=== PATIENT | female | born 1955 | race Caucasian/White ===

== ENCOUNTER → 2022-11-19 08:37 | Outpatient (BNVA) | payer MEDICARE, SELFPAY | PROVIDERS: PCP Family Medicine; Visit Provider Family Medicine | DX: I10 Essential (primary) hypertension (principal) | CPT/HCPCS: 80053; 80061; 82043; 85025 ==

== ENCOUNTER 2022-11-28 12:45 | Oncology outpatient (recurring) (ONCR) | payer MEDICARE, SELFPAY | END 2022-12-27 23:59 | disposition home or self-care (01) | PROVIDERS: PCP Family Medicine; Visit Provider Internal Medicine Hematology & Oncology | DX: C50.811 Malignant neoplasm of overlapping sites of right female breast (principal); Z17.0 Estrogen receptor positive status [ER+]; C77.8 Secondary and unspecified malignant neoplasm of lymph nodes of multiple regions; Z79.811 Long term (current) use of aromatase inhibitors; Z79.899 Other long term (current) drug therapy | CPT/HCPCS: 99204 ==

== ENCOUNTER → 2022-12-11 09:57 | Outpatient (BNVA) | payer MEDICARE, SELFPAY | PROVIDERS: PCP Family Medicine; Referring Provider Family Medicine; Visit Provider Specialist | DX: G56.11 Other lesions of median nerve, right upper limb (principal) | CPT/HCPCS: 95908; 95909 ==

== ENCOUNTER → 2023-01-09 08:45 | Outpatient (BNVA) | payer MEDICARE, SELFPAY | PROVIDERS: PCP Family Medicine; Referring Provider Family Medicine; Visit Provider Student in an Organized Health Care Education/Training Program | DX: G56.01 Carpal tunnel syndrome, right upper limb (principal) | CPT/HCPCS: 73110; 99204 ==

== ENCOUNTER 2023-01-14 07:48 | Day surgery (SDC) | payer MEDICARE, SELFPAY ==
[2023-01-13 09:16] VITALS: BMI 31.3
--- NOTE | 2023-01-14 08:09 | W.PM.OPSUD ---
Surgery/Procedure H&P Update DATE OF PROCEDURE: January 14, 2023 DATE H&P PERFORMED: 01/09/23 CHANGES TO PREVIOUS DOCUMENTATION: None PREOP DIAGNOSIS: Right carpal tunnel syndrome PRIMARY INDICATION FOR PROCEDURE: Right carpal tunnel syndrome PLANNED PROCEDURE: Operation Date: 01/14/23 09:25 Proposed Procedures p carpal tunnel release of the right hand:64644,G56.01(Right) - Kirk Chaney DO
[2023-01-14] MEDS: acetaminophen 1,000 MG/100 ML PIGGYBACK 400 MG IV (09:02)
[2023-01-14] MEDS: ketorolac 30 mg/mL INJ IVP (09:04)
[2023-01-14] MEDS: sodium chloride 0.9% 1,000 ML 30 ML IV (09:04)
--- NOTE | 2023-01-14 09:35 | ANES.PREANE2 ---
Pre-Anesthetic Assessment Height/Weight: Height 1.5 m Weight 70.307 kg O2 Del Method Room Air 01/14/23 08:19 Preop Diagnosis: Right carpal tunnel syndrome Operation Date: 01/14/23 09:25 Proposed Procedures p carpal tunnel release of the right hand:89712,G56.01(Right) - Kirk Chaney DO Familial anesthetic complications: none Was Beta Danna taken within 24 hours: N/A Was Clonidine taken within 24 hours: N/A Last intake: Intake Last Liquid Date 01/15/23 Last Liquid Time 08:00 Last Solid Date 01/13/23 Last Solid Time 19:00 Social No alcohol and No tobacco Exam alert, oriented x 3, clear to auscultation bilaterally and regular rate & rhythm Airway Submandibular: within normal limits Cervical ROM: within normal limits Mallampati: Class II Dentition: full CV/HEM Hypertension Metabolic Hyperlipidemia and Morbid Obesity Neuropsych Neuropathy Anesthetic Plan ASA status: 2 Anesthesia: Choice Medications/Allergies Home Medications Medication Instructions Recorded Confirmed Last Taken Type acetaminophen 500 mg capsule 500 mg PO Q6H PRN tylenol 09/17/22 01/14/23 01/13/23 History ascorbic acid (vitamin C) 500 mg 500 mg PO DAILY 09/17/22 01/13/23 01/13/23 History capsule aspirin 81 mg tablet,delayed 81 mg PO DAILY 09/17/22 01/13/23 01/10/23 History release cholecalciferol (vitamin D3) 25 25 mcg PO DAILY 09/17/22 01/13/23 01/10/23 History mcg (1,000 unit) capsule omega-3 fatty acids-fish oil 360 1 cap PO DAILY 09/17/22 01/13/23 01/10/23 History mg-1,200 mg capsule (Fish Oil) amlodipine 5 mg tablet 5 mg PO DAILY #90 tabs 11/19/22 01/13/23 01/14/23 Rx anastrozole 1 mg tablet 1 mg PO DAILY #90 tabs 11/19/22 01/13/23 01/13/23 Rx lisinopril 40 mg tablet 40 mg PO ONCE #90 tabs 11/19/22 01/13/23 01/13/23 Rx rosuvastatin 5 mg tablet 5 mg PO DAILY #90 tabs 11/19/22 01/13/23 01/13/23 Rx Force Factor Total Beets See Rx Instructions .Route DAILY 11/28/22 01/13/23 01/13/23 History calcium carbonate 500 mg calcium 500 mg PO DAILY 01/09/23 01/13/23 01/13/23 History (1,250 mg) tablet Allergies Allergy/AdvReac Type Severity Reaction Status Date / Time Opioids - Morphine Analogues Allergy nausea Verified 01/13/23 09:11 Current Medications Generic Name Dose Route Start Last Admin Trade Name Freq PRN Reason Stop Dose Admin Sodium Chloride 1,000 mls @ 30 mls/hr 01/14/23 08:00 01/14/23 09:04 Sodium Chloride 0.9% IV 01/15/23 07:59 30 mls/hr .Q24H LOIS Administration PFSH Anesthesia Medical History Benign essential HTN Benign meningioma Breast cancer, right Carpal tunnel syndrome on both sides Surgical History History of exploratory laparotomy History of laparoscopic cholecystectomy History of lumpectomy of right breast Social History Smoking and tobacco status: never smoked Second hand smoke exposure: No Data Anesthesia Cardiac Studies: No Data to Display
[2023-01-14] MEDS: ceFAZolin 2,000 MG in sodium chloride 0.9% (plus) 50 ML 100 MG IV (09:42)
[2023-01-14] MEDS: lidocaine-epi 1% 20 mL INJ INJECTION (10:02)
[2023-01-14 10:17] VITALS: BP 122/64; PULSE 67; RESP 15; TEMP 36.1; O2SAT 92
--- NOTE | 2023-01-14 10:19 | PM.OP2 ---
Brief Operative Note Date of procedure: 01/14/23 Pre-op diagnosis: Right carpal tunnel syndrome Post-op diagnosis: same Procedure Done: Right carpal tunnel release Surgeon: Kirk Chaney Estimated blood loss (mL): 1 Complications: None Post-op Plan: Patient taken to PACU in stable condition recovering well. Patient dressing clean dry and intact. Patient will receive appropriate discharge instructions as well as pain medication postoperatively. We will follow-up with me in the office in 2 weeks. Patient understands and agrees with current plan. All questions answered. Condition: stable Disposition: same day Coding Level of Care Code Acute Code for Yasmeen Molina
[2023-01-14 10:20] VITALS: BP 129/69; PULSE 65; RESP 14; O2SAT 95
--- NOTE | 2023-01-14 10:20 | P.OP_ITS ---
Operative Report Date of procedure: January 14, 2023 Pre-op diagnosis: Preop Diagnosis Right carpal tunnel syndrome Procedure: Post-op diagnosis: Same Procedure done: Right carpal tunnel release Surgeon: Kirk Chaney DO Anesthesia: MAC (Local) Estimated blood loss: 1 mL Tourniquet time 7 minutes IV fluids: See anesthesia record Complications: None Findings: See operative report narrative Condition: stable Disposition: same day Brief History: Patient is a pleasant 67-year-old female with right carpal tunnel syndrome.? She has been worked up in the outpatient setting findings and physical examination consistent with this.? Patient states she has had EMG/NCS study in the past admitted consistent with severe right carpal tunnel syndrome.? On examination she does have weakness on thenar stress and mild atrophy at this time.? We talked about treatment options far as nonoperative and operative intervention.? Since she is already having weakness we talked about nonoperative and operative intervention ultimately given she is already having some signs of weakness would recommend surgical intervention of a right carpal tunnel release.? Through shared decision making in detail out of her risk benefits complication alternatives with surgical nonsurgical treatment options she agrees to proceed with surgical intervention of the right carpal tunnel release. Patient understands and agrees with current plan.? All questions answered.? Procedure: Patient seen and evaluated in the preoperative holding area.? Consent was reviewed and signed with patient.? Correct extremity was marked.? Patient was seen evaluated by the anesthesia department once cleared for surgery was brought back to the operative suite.? Placement was placed onto the OR table in supine position all bony prominences were well-padded patient properly secured to the bed.? Right upper extremity was then placed onto an armboard.? A nonsterile tourniquet was applied to the right upper arm.? Patient underwent anesthesia per the anesthesia department.? Patient's right upper extremity was then prepped and draped in standard orthopedic fashion.? Final timeout performed.? Patient received appropriate preoperative antibiotics. Under sterile aseptic technique patient received local anesthesia over the preplanned carpal tunnel incision site. Esmarch was used to exsanguinate the right upper extremity and tourniquet was insufflated to 250 mmHg. A standard mini open carpal tunnel incision was made.? Starting distally at Adkins's cardinal line in line with the fourth ray extending proximally distal to the wrist crease centered over the carpal tunnel.? Sharp scalpel incision was made through skin and subcutaneous tissue.? Self-retaining retractor was placed and the palmar fascia was identified.? This was then split longitudinally and direct visualization of the transverse carpal ligament was then made.? I then utilizing scalpel feathered through the transverse carpal ligament until I entered the floor of the transverse carpal tunnel ligament into the carpal tunnel.? Next I switched to dissection scissors and completed my release of the transverse carpal ligament distally with care to protect the recurrent motor branch.? I completely released into the palmar fat and until no entrapment was noted distally.? Care was made to protect the superficial palmar arch during my distal dissection.? Next I then placed a [place] underneath the transverse carpal tunnel ligament to protect the contents of the carpal tunnel and subsequently utilizing dissection scissors under loupe magnification completely released the transverse carpal ligament proximally into the median antebrachial fascia.? Care was made to protect the palmar cutaneous branch by keeping my scissors curved ulnarly.? Once completely released, I then placed my [place] and had appropriate decompression of the carpal tunnel proximally as well as distally.? I then inspected the contents of the carpal tunnel which showed an hourglass shape of the median nerve showing its compression.? No masses were noted.? Tendons appeared healthy.? Wound was then thoroughly irrigated.? Tourniquet deflated.? Hemostasis satisfactory with bipolar electrocautery.? I then closed the incision with interrupted nylon stitches.? Xeroform 4 x 4's and a bulky soft dressing was applied to the right upper extremity.? Patient was then awakened from anesthesia and taken to PACU in stable condition.? Patient tolerated procedure without complications. Disposition: Patient taken to PACU in stable condition recovering well.? Dressing clean dry and intact.? Patient will receive appropriate discharge instructions as well as pain medication postoperatively.? Patient to follow-up with me in the office in 2 weeks.? They understand they may be weightbearing as tolerated to the right hand.? Patient should keep incision clean dry and intact.? Patient understands if any questions or concerns may contact the office.
--- NOTE | 2023-01-14 10:20 | PM.PACU ---
PACU note Narrative: Patient taken to PACU in stable condition. Pain controlled. Local anesthesia still in effect with decreased sensation to right hand. Patient is able to wiggle fingers fingertips are warm well-perfused brisk capillary refill less than 2 seconds. Dressing on in place clean dry and intact Exam: awake Disposition: discharged
[2023-01-14 10:25] VITALS: BP 135/78; PULSE 62; RESP 16; O2SAT 95
[2023-01-14 10:35] VITALS: BP 142/77; PULSE 65; RESP 18; TEMP 36.1; O2SAT 96
--- NOTE | 2023-01-14 14:43 | ANE.PACU2 ---
Inpatient post-anesthesia follow up: Airway intact: Yes Vital signs: Temperature 97 F Pulse Rate 65 Respiratory Rate 18 Blood Pressure 142/77 Pulse Oximetry 96 Oxygen Delivery Me thod Room Air Oxygen Flow Rate Fraction of Inspir ed Oxygen Hydration adequate: Yes Nausea and vomiting: No Pain level: 2 Mental status: Baseline
== END 2023-01-14 11:07 | disposition home or self-care (01) ==
PROVIDERS: PCP Family Medicine; Visit Provider Student in an Organized Health Care Education/Training Program
PROC: (CPT 64721; principal; 2023-01-14 09:15)
DX: G56.01 Carpal tunnel syndrome, right upper limb (principal); I10 Essential (primary) hypertension; E78.5 Hyperlipidemia, unspecified; E66.01 Morbid (severe) obesity due to excess calories; Z68.31 Body mass index [BMI] 31.0-31.9, adult; G62.9 Polyneuropathy, unspecified; Z79.82 Long term (current) use of aspirin
CPT/HCPCS: 64721; J0131; J0690; J1885; J2704; J2795; J3010; J7030

== ENCOUNTER → 2023-01-30 08:14 | Outpatient (BNVA) | payer MEDICARE, SELFPAY | PROVIDERS: PCP Family Medicine; Visit Provider Student in an Organized Health Care Education/Training Program | DX: Z47.89 Encounter for other orthopedic aftercare (principal) | CPT/HCPCS: 99024 ==

== ENCOUNTER 2023-02-05 07:22 | Outpatient (CLI) | payer MEDICARE, SELFPAY ==
--- NOTE | 2023-02-05 | CT_ITS ---
WS: [id number] CT HEAD TECHNIQUE: Noncontrast CT of the head obtained from the skullbase to the vertex. CLINICAL INFORMATION: Benign neoplasm: Brain, supratentorial COMPARISON: Outside MRI 2020 DLP: 917.[address] scans at [facility] use at least one of these dose optimization techniques: automated e xposure control; mA and/or kV adjustment per patient size (includes targeted exams where dose is matc hed to clinical indication); or iterative reconstruction. FINDINGS: No evidence of intracranial hemorrhage or mass effect. Ventricular system and basal cisterns are duron nt. Moderate small vessel changes with mild parenchymal volume loss. Chronic lacunar infarct anterior limb LEFT internal capsule. No extra-axial fluid collections. No evidence of mass or mass effect. Va scular calcification. Meningioma overlying the RIGHT posterior temporal lobe. This measures approximately 1.7 x 1.3 cm. Thi s appears stable since MRI August 20, 2021 considering differences in modality and lack of contrast . This can be followed up with MRI without and with gadolinium enhancement for better anatomic detail Paranasal sinuses and mastoid air cells are well aerated. .Normal visualized soft tissues. CT/CT head wo con* [id number] IMPRESSION: 1. No evidence of intracranial hemorrhage or mass effect. 2. Moderate small vessel changes. Mild parenchymal volume loss. 3. Stable appearing meningioma overlying the RIGHT posterior temporal lobe. Th is appears stable since MRI August 20, 2021 considering differences in modali ty and lack of contrast. This can be followed up with MRI without and with gado linium enhancement for better anatomic detail. 4. No other suspicious findings
== END 2023-02-05 07:23 | disposition home or self-care (01) ==
PROVIDERS: PCP Family Medicine; Visit Provider Neurological Surgery
DX: D33.0 Benign neoplasm of brain, supratentorial (principal)
CPT/HCPCS: 70450

== ENCOUNTER 2023-05-22 07:32 | Outpatient (CLI) | payer MEDICARE, SELFPAY ==
--- NOTE | 2023-05-22 07:37 | MM_ITS ---
WS: [id number] BILATERAL 3D TOMOSYNTHESIS DIGITAL DIAGNOSTIC MAMMOGRAPHY WITH CAD CLINICAL INFORMATION: HX OF BREAST CANCER HISTORY: RIGHT breast lumpectomy COMPARISON: 05/20/2022 TECHNIQUE: Bilateral CC, MLO, and ML views. FINDINGS: Scattered fibroglandular densities bilaterally. Postoperative lumpectomy changes RIGHT breast with pa renchymal fibrosis and architectural distortion. Treatment related changes with associated skin thick ening. This is similar to previous. Vascular calcification. LEFT breast is unchanged and unremarkable. IMPRESSION: MM/[place] [id number] BI-RADS: 2-Benign FOLLOW UP: 1 Year Follow-up Recommend return to annual diagnostic mammography.
== END 2023-05-22 07:33 | disposition home or self-care (01) ==
PROVIDERS: PCP Family Medicine; Visit Provider Nurse Practitioner Family
DX: Z85.3 Personal history of malignant neoplasm of breast (principal)
CPT/HCPCS: 77062; G0279

== ENCOUNTER 2023-06-06 07:25 | Oncology outpatient (recurring) (ONCR) | payer MEDICARE, SELFPAY ==
[2023-06-06 08:15] LABS: Basophils % 0.9 %; Eosinophils # 0.3 10^3/uL (0.0-0.8); Eosinophils % 6.5 %; Hematocrit 40.2 % (36-47); Lymphocytes # 0.9 10^3/uL (0.8-4.8); Lymphocytes % 20.3 %; Mean Corpuscular HGB Conc 34.8 g/dL (30-55); Mean Corpuscular Hemoglobin 30.8 pg (27-33); Mean Corpuscular Volume 88.5 fl (85-98); Mean Platelet Volume 8.3 fL (7.4-10.4); Monocytes # 0.3 10^3/uL (0.2-0.9); Monocytes % 7.4 %; Neutrophils # 2.81 10^3/uL (1.8-7.7); Neutrophils % 64.7 %; Nucleated Red Blood Cells % 0 %; Platelet Count 231 10^3/cmm (157-399); Red Blood Count 4.54 10^6/uL (3.85-5.65); Red Cell Distribution Width 12.6 % (12.1-15.1); White Blood Count 4.34 10^3/uL (3.29-11.43)
[2023-06-06 08:38] LABS: Alanine Aminotransferase 26 U/L (0-33); Albumin Level 4.4 g/dL (3.5-5.2); Alkaline Phosphatase 87 U/L (35-105); Anion Gap 12.1 (5-19); Aspartate Amino Transferase 23 U/L (0-32); Blood Urea Nitrogen 19 mg/dL (8-23); Calcium 9.2 mg/dL (8.5-10.5); Carbon Dioxide 27 mmol/L (22-29); Chloride 107 mmol/L (98-107); Globulin 2.6 g/dL (1.3-4.6); Glomerular Filtration Rate 71.3 mL/min (90-130); Glucose 98 mg/dL (65-115); Osmolality Calculated 296 mOsm/kg (285-295); Potassium 4.1 mmol/L (3.5-5.1); Sodium 142 mmol/L (136-145); Total Bilirubin 1.6 mg/dL (0.15-1.2)
== END 2023-06-28 23:59 | disposition home or self-care (01) ==
PROVIDERS: PCP Family Medicine; Visit Provider Internal Medicine Hematology & Oncology
DX: C50.811 Malignant neoplasm of overlapping sites of right female breast (principal); Z17.0 Estrogen receptor positive status [ER+]; C77.8 Secondary and unspecified malignant neoplasm of lymph nodes of multiple regions; Z79.811 Long term (current) use of aromatase inhibitors; Z79.899 Other long term (current) drug therapy
CPT/HCPCS: 80053; 85025; 99213

== ENCOUNTER → 2023-07-15 08:08 | Outpatient (BNVA) | payer MEDICARE, SELFPAY | PROVIDERS: PCP Family Medicine; Visit Provider Student in an Organized Health Care Education/Training Program | DX: M79.642 Pain in left hand (principal); M65.4 Radial styloid tenosynovitis [de Quervain] | CPT/HCPCS: 73130; 99213 ==

== ENCOUNTER → 2023-11-03 09:51 | Outpatient (BNVA) | payer OTHER, SELFPAY | PROVIDERS: PCP Family Medicine; Visit Provider Family Medicine | DX: E78.5 Hyperlipidemia, unspecified (principal); E11.9 Type 2 diabetes mellitus without complications; I10 Essential (primary) hypertension | CPT/HCPCS: 80061; 82043 ==

== ENCOUNTER 2023-12-11 11:52 | Oncology outpatient (recurring) (ONCR) | payer MEDICARE, SELFPAY ==
[2023-12-08 09:32] LABS: Basophils # 0.1 10^3/uL (0.0-0.1); Eosinophils # 0.3 10^3/uL (0.0-0.8); Eosinophils % 5.6 %; Hematocrit 41.1 % (36-47); Lymphocytes % 20.4 %; Mean Corpuscular HGB Conc 34.8 g/dL (30-55); Mean Corpuscular Hemoglobin 31.2 pg (27-33); Mean Corpuscular Volume 89.5 fl (85-98); Mean Platelet Volume 8.3 fL (7.4-10.4); Monocytes # 0.4 10^3/uL (0.2-0.9); Monocytes % 7.5 %; Neutrophils # 3.12 10^3/uL (1.8-7.7); Neutrophils % 65.1 %; Nucleated Red Blood Cells % 0 %; Platelet Count 273 10^3/cmm (157-399); Red Blood Count 4.59 10^6/uL (3.85-5.65); Red Cell Distribution Width 12.7 % (12.1-15.1)
[2023-12-08 10:03] LABS: Alanine Aminotransferase 20 U/L (0-33); Albumin Level 4.1 g/dL (3.5-5.2); Alkaline Phosphatase 88 U/L (35-105); Anion Gap 15.1 (5-19); Aspartate Amino Transferase 24 U/L (0-32); Blood Urea Nitrogen 14 mg/dL (8-23); Calcium 8.9 mg/dL (8.5-10.5); Carbon Dioxide 25 mmol/L (22-29); Chloride 106 mmol/L (98-107); Globulin 2.9 g/dL (1.3-4.6); Glucose 103 mg/dL (65-115); Osmolality Calculated 295 mOsm/kg (285-295); Potassium 4.1 mmol/L (3.5-5.1); Sodium 142 mmol/L (136-145); Total Bilirubin 1.3 mg/dL (0.15-1.2)
== END 2023-12-28 23:59 | disposition home or self-care (01) ==
PROVIDERS: PCP Family Medicine; Visit Provider Nurse Practitioner Family
DX: C50.811 Malignant neoplasm of overlapping sites of right female breast (principal); Z17.0 Estrogen receptor positive status [ER+]; C77.8 Secondary and unspecified malignant neoplasm of lymph nodes of multiple regions; Z79.811 Long term (current) use of aromatase inhibitors; Z79.899 Other long term (current) drug therapy
CPT/HCPCS: 36415; 80053; 85025; 99214

== ENCOUNTER 2024-05-26 07:57 | Outpatient (CLI) | payer MEDICARE, SELFPAY ==
--- NOTE | 2024-05-26 08:00 | MM_ITS ---
WS: [id number] VIEWS: MLO, CC, and ML views both breasts. 3D digital tomosynthesis is also included in this exam. Comparison made with prior exam of 05/20/2022 and 05/22/2023.. Findings: There was no sign of mass, architectural distortion or suspicious calcification in either breast. Pos tsurgical changes noted in the upper outer quadrant of the RIGHT breast. The breasts are heterogeneou sly dense which may obscure small masses MM/[place] [id number] Impression: BI-RADS: 2-Benign finding. FOLLOW-UP: 1 Year Follow-up This mammogram was also analyzed by the Computer Aided Detection System R2 Imag e Replenisher.
== END 2024-05-26 07:58 | disposition home or self-care (01) ==
LOC: RAD 07:57
PROVIDERS: PCP Family Medicine Adult Medicine; Visit Provider Nurse Practitioner Family
DX: C50.911 Malignant neoplasm of unspecified site of right female breast (principal); Z98.890 Other specified postprocedural states; R92.333 Mammographic heterogeneous density, bilateral breasts
CPT/HCPCS: 77062; G0279

== ENCOUNTER 2024-06-15 12:37 | Oncology outpatient (recurring) (ONCR) | payer MEDICARE, SELFPAY ==
[2024-06-14 13:31] LABS: Basophils # 0.1 10^3/uL (0.0-0.1); Basophils % 0.8 %; Eosinophils # 0.3 10^3/uL (0.0-0.8); Eosinophils % 5.2 %; Hematocrit 39.2 % (36-47); Lymphocytes # 1.4 10^3/uL (0.8-4.8); Mean Corpuscular HGB Conc 35.5 g/dL (30-55); Mean Corpuscular Volume 87.5 fl (85-98); Mean Platelet Volume 8.2 fL (7.4-10.4); Monocytes # 0.4 10^3/uL (0.2-0.9); Monocytes % 6.1 %; Neutrophils # 3.81 10^3/uL (1.8-7.7); Neutrophils % 64.4 %; Nucleated Red Blood Cells % 0 %; Platelet Count 281 10^3/cmm (157-399); Red Blood Count 4.48 10^6/uL (3.85-5.65); Red Cell Distribution Width 12.7 % (12.1-15.1); White Blood Count 5.92 10^3/uL (3.29-11.43)
[2024-06-14 13:46] LABS: Alanine Aminotransferase 17 U/L (0-33); Albumin Level 4.2 g/dL (3.5-5.2); Alkaline Phosphatase 93 U/L (35-105); Anion Gap 12.7 (5-19); Aspartate Amino Transferase 21 U/L (0-32); Blood Urea Nitrogen 10 mg/dL (8-23); Calcium 8.7 mg/dL (8.5-10.5); Carbon Dioxide 27 mmol/L (22-29); Chloride 105 mmol/L (98-107); Globulin 2.8 g/dL (1.3-4.6); Glucose 155 mg/dL (65-115); Osmolality Calculated 294 mOsm/kg (285-295); Potassium 3.7 mmol/L (3.5-5.1); Sodium 141 mmol/L (136-145)
== END 2024-06-28 23:59 | disposition home or self-care (01) ==
PROVIDERS: PCP Family Medicine Adult Medicine; Visit Provider Nurse Practitioner Family
DX: C50.911 Malignant neoplasm of unspecified site of right female breast (principal)
CPT/HCPCS: 36415; 80053; 85025; 99214

== ENCOUNTER → 2024-11-24 07:57 | Outpatient (BNVA) | payer MEDICARE, SELFPAY | PROVIDERS: PCP Family Medicine; Visit Provider Family Medicine | DX: I10 Essential (primary) hypertension (principal); E78.5 Hyperlipidemia, unspecified; Z79.899 Other long term (current) drug therapy | CPT/HCPCS: 80061; 84443 ==

== ENCOUNTER 2024-12-15 09:29 | Oncology outpatient (recurring) (ONCR) | payer MEDICARE, SELFPAY | END 2024-12-27 23:59 | disposition home or self-care (01) | PROVIDERS: PCP Family Medicine; Visit Provider Family Medicine | DX: C50.911 Malignant neoplasm of unspecified site of right female breast (principal); Z17.0 Estrogen receptor positive status [ER+]; Z92.3 Personal history of irradiation; Z79.811 Long term (current) use of aromatase inhibitors | CPT/HCPCS: 80053; 85025; 99213 ==

== ENCOUNTER 2024-12-28 07:38 | Outpatient (CLI) | payer MEDICARE, SELFPAY ==
--- NOTE | 2024-12-28 08:00 | MR_ITS ---
WS: [id number] MRI HEAD WITH CONTRAST TECHNIQUE: Sagittal T1, T2 axial, T2 axial FLAIR, axial susceptibility weighted imaging, axial diffusion weighted images, and coronal T2 images were obtained. Pre and post-T1 axial and post T1 coronal images. ADC and FSPGR images. CLINICAL INFORMATION: meningioma f/u--has just had CT COMPARISON: Outside MRI [address] 02/05/2023 FINDINGS: Again seen is the enhancing meningioma overlying the RIGHT posterior temporal lobe appears stable since 2020. This measures approximately 1.5 x 1.4 cm by my measurements today. Mild mass effect on the underlying temporal lobe. No significant surrounding edema. No evidence of progression. No evidence of restricted diffusion to suggest acute ischemia. Moderate small vessel changes. Mild parenchymal volume loss. Normal posterior fossa. Normal vascular flow voids at the skull base. No extra-axial fluid collections. Paranasal sinuses and mastoid air cells are well aerated. No hemosiderin on susceptibly weighted images. Normal optic chiasm and pituitary infundibulum. MR/MR head wo/w con [id number] IMPRESSION: 1. Stable RIGHT posterior temporal meningioma. This is unchanged since 2020. N o evidence of progression or underlying edema. 2. No other acute findings.
[2024-12-28] MEDS: gadobenate dimeglumine 20 mL vial 15 ML IV (08:40)
== END 2024-12-28 07:39 | disposition home or self-care (01) ==
PROVIDERS: PCP Family Medicine; Visit Provider Family Medicine
DX: D32.9 Benign neoplasm of meninges, unspecified (principal); R93.0 Abnormal findings on diagnostic imaging of skull and head, not elsewhere classified; G31.89 Other specified degenerative diseases of nervous system
CPT/HCPCS: 70553

== ENCOUNTER 2025-02-26 10:40 | Emergency (ER) | payer MEDICARE, SELFPAY ==
[2025-02-26 10:48] VITALS: BP 120/83; PULSE 88; RESP 20; TEMP 36.7; O2SAT 97
--- NOTE | 2025-02-26 11:01 | ECG_ITS ---
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 Measurements Intervals [place] Rate: 79 P: 8 NV: 152 QRS: -24 QRSD: 89 T: 20 QT: 362 QTc: 417 Interpretive Statements SINUS RHYTHM BORDERLINE LEFT AXIS DEVIATION [QRS AXIS < -20] VOLTAGE CRITERIA FOR LVH [MEETS CRITERIA IN ONE OF: R(aVL), S(V1), R(V5), R(V5/V6)+S(V1)] No previous ECG available for comparison Electronically Signed On 03-01-2025 11:43:21 CDT by Jam Jarrell M.D. [email or web address]
--- NOTE | 2025-02-26 11:01 | XRR_ITS ---
PROCEDURE INFORMATION: Exam: XR Chest Exam date and time: 02/26/2025 11:27 AM Age: 69 years old Clinical indication: Pain; Chest pressure; Additional info: Chest pain TECHNIQUE: Imaging protocol: Radiologic exam of the chest. Views: 1 view. COMPARISON: PT PET skull to thigh INIT [id number] 07/19/2021 9:19 AM FINDINGS: Tubes, catheters and devices: Surgical clips overlie the right abdomen. Lungs: Left-sided pulmonary linear interstitial opacities identified within lower lung. The lungs appear otherwise clear. Pleural spaces: No pleural effusion. No pneumothorax. Heart/Mediastinum: Cardiac silhouette appears mildly enlarged. Bones/joints: Diffusely decreased bone density. Moderate to severe generalized bony degenerative changes. Soft tissues: This study is limited by patient's body habitus. XR/XR chest 1V portable [id number] IMPRESSION: 1. Pulmonary atelectasis or acute infiltrates within left lower chest. 2. Mild enlarged cardiac silhouette.
[2025-02-26 11:17] LABS: Basophils % 0.2 %; Eosinophils % 0.3 %; Hematocrit 42.3 % (36-47); Lymphocytes # 0.6 10^3/uL (0.8-4.8); Lymphocytes % 4.5 %; Mean Corpuscular HGB Conc 33.8 g/dL (30-55); Mean Corpuscular Hemoglobin 30.2 pg (27-33); Mean Corpuscular Volume 89.4 fl (85-98); Mean Platelet Volume 8.4 fL (7.4-10.4); Monocytes # 0.6 10^3/uL (0.2-0.9); Neutrophils # 11.43 10^3/uL (1.8-7.7); Neutrophils % 89.7 %; Nucleated Red Blood Cells % 0 %; Platelet Count 269 10^3/cmm (157-399); Red Blood Count 4.73 10^6/uL (3.85-5.65); Red Cell Distribution Width 12.9 % (12.1-15.1); White Blood Count 12.75 10^3/uL (3.29-11.43)
[2025-02-26 11:34] LABS: D Dimer 0.62 ug/mLFEU (0-0.59)
[2025-02-26] MEDS: aspirin 81 mg Chew Tablet 324 MG PO (11:34)
[2025-02-26] MEDS: ondansetron 2 mg/ML SDV 2 mL 4 MG IVP (11:35)
[2025-02-26 11:37] VITALS: BP 110/71; PULSE 83; RESP 16; O2SAT 98
[2025-02-26 11:37] LABS: Troponin(5th) Baseline 7 ng/L (0-10)
--- NOTE | 2025-02-26 11:39 | PC.NURSE ---
pt states she is allergic to morphine, states she had it once and began violently vomiting Pt has ambulated w/o assistance to restroom and had a large BM, and voided. urine sample placed in lab.
[2025-02-26 11:46] LABS: Alanine Aminotransferase 20 U/L (0-33); Albumin Level 4.3 g/dL (3.5-5.2); Alkaline Phosphatase 96 U/L (35-105); Anion Gap 16.3 (5-19); Aspartate Amino Transferase 20 U/L (0-32); Blood Urea Nitrogen 19 mg/dL (8-23); Calcium 9.2 mg/dL (8.5-10.5); Carbon Dioxide 23 mmol/L (22-29); Chloride 106 mmol/L (98-107); Globulin 2.6 g/dL (1.3-4.6); Glomerular Filtration Rate 70.9 mL/min (90-130); Glucose 128 mg/dL (65-115); NT Pro B Type Natriuretic Pept < 36 pg/mL (0-125); Osmolality Calculated 296 mOsm/kg (285-295); Potassium 4.3 mmol/L (3.5-5.1); Sodium 141 mmol/L (136-145); Total Bilirubin 1.9 mg/dL (0.15-1.2); Total Protein 6.9 g/dL (6.6-8.7)
--- NOTE | 2025-02-26 12:13 | CTR_ITS ---
PROCEDURE INFORMATION: Exam: CTA Chest With Contrast Exam date and time: 02/26/2025 12:40 PM Age: 69 years old Clinical indication: Abnormal findings; Abnormal diagnostic tests; Elevated d-dimer; Shortness of breath; Additional info: Chest pain, SOB TECHNIQUE: Imaging protocol: Computed tomographic angiography of the chest with contrast. Exam focused on the arteries. 3D rendering (Not supervised by radiologist): MIP and/or 3D reconstructed images were created by the technologist. Radiation optimization: All CT scans at this facility use at least one of these dose optimization techniques: automated exposure control; mA and/or kV adjustment per patient size (includes targeted exams where dose is matched to clinical indication); or iterative reconstruction. Contrast material: OMNI 350; Contrast volume: 58 ml; Contrast route: INTRAVENOUS (IV); COMPARISON: PT PET skull to thigh INIT [id number] 07/19/2021 9:19 AM RADIATION DOSE METRICS: Total DLP (mGy-cm): 332.76 FINDINGS: Pulmonary arteries: No visualized pulmonary emboli. Great vessels off aortic arch: Unremarkable. Aorta: Mild atherosclerotic calcification demonstrated within the aorta. The ascending thoracic aorta is aneurysmal. Ascending thoracic aorta measurement: 4 cm on axial image 188 of series 7. Normal tapering of the aortic arch and descending thoracic aorta. Lungs: Lung volumes are decreased. Bilateral pulmonary linear and interstitial opacities are demonstrated within the lungs. The pulmonary opacities are demonstrated within bilateral upper and lower lungs. Mild alveolar density in the left lower chest, lingula and left lower lobe. Bronchial wall thickening within the lungs bilaterally. Pleural spaces: Unremarkable. No pneumothorax. No pleural effusion. Heart: Aortic valve calcification is demonstrated. Lymph nodes: No evidence for enlarged lymphadenopathy. Gallbladder and biliary ducts: The gallbladder has been surgically removed. Surgical clips identified in the gallbladder fossa. Intestine: Colonic diverticulosis identified within the visualized left abdomen. Bones/joints: Mild generalized bony degenerative changes. Bony structures appear otherwise unremarkable. Soft tissues: Unremarkable. CT/CT angio chest PE protcl [id number] IMPRESSION: 1. No visualized pulmonary embolus. 2. Diffuse bilateral pulmonary opacities which appear most prominent in the left lower lung. Findings concerning for acute infiltrates, pneumonia or pneumonitis. 3. Ascending thoracic aortic aneurysm, as described above. 4. Colonic diverticulosis.
[2025-02-26 12:30] VITALS: BP 97/70; PULSE 78; O2SAT 97
[2025-02-26] MEDS: iohexol 350 mg/mL 500 mL Btl (per mL) IV (12:54)
[2025-02-26 13:00] VITALS: BP 141/93; PULSE 94; O2SAT 98
--- NOTE | 2025-02-26 13:13 | ECG_ITS ---
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1955 Requested By: Dwight Luna Order Number: [id number] Reading MD: MICHELINE GONZALEZ Measurements Intervals [place] Rate: 82 P: -3 SD: 146 QRS: -23 QRSD: 84 T: 23 QT: 354 QTc: 415 Interpretive Statements SINUS RHYTHM BORDERLINE LEFT AXIS DEVIATION [QRS AXIS < -20] LOW QRS VOLTAGE IN PRECORDIAL LEADS [QRS DEFLECTION < 1.0 mV IN CHEST LEADS] MODERATE VOLTAGE CRITERIA FOR LVH, CONSIDER NORMAL VARIANT [MEETS CRITERIA IN ONE OF: R(aVL), S(V1), R(V5), R(V5/V6)+S(V1)] Compared to ECG 02/26/2025 10:52:28 Low QRS voltage now present Electronically Signed On 03-02-2025 23:01:17 CDT by MICHELINE GONZALEZ [id number]
[2025-02-26 13:25] LABS: Troponin 5 2HR 7.03 ng/L (0-10); Troponin 5 2HR Delta 0.03 ABS# (0-10)
[2025-02-26 13:30] VITALS: PULSE 79; O2SAT 94
--- NOTE | 2025-02-26 13:38 | W.ED.CHESTPA ---
HPI - Chest Pain General: Chief Complaint: Chest Pain Stated Complaint: cp sob Time Seen by Provider: 02/26/25 10:43 History of Present Illness: This patient is a 69-year-old white female who presents to the emergency department complaining of headache, neck pain, back pain, shoulder pains and chest pain. She has also had some shortness of breath and nausea. Mild cough. Started at 8:00 this morning. Associated symptoms: Reports dyspnea Related Data Home Medications ?Medication ?Instructions ?Recorded ?Confirmed acetaminophen 500 mg capsule 500 mg PO Q6H PRN tylenol 09/17/22 12/15/24 ascorbic acid (vitamin C) 500 mg 500 mg PO DAILY 09/17/22 12/15/24 capsule aspirin 81 mg tablet,delayed 81 mg PO DAILY 09/17/22 12/15/24 release cholecalciferol (vitamin D3) 25 25 mcg PO DAILY 09/17/22 12/15/24 mcg (1,000 unit) capsule omega-3 fatty acids-fish oil 360 1 cap PO DAILY 09/17/22 12/15/24 mg-1,200 mg capsule (Fish Oil) Force Factor Total Beets See Rx Instructions .Route DAILY 11/28/22 12/15/24 calcium carbonate 500 mg PO DAILY 01/09/23 12/15/24 Previous Rx's ?Medication ?Instructions ?Recorded anastrozole 1 mg tablet 1 mg PO DAILY #90 tabs 06/15/24 rosuvastatin 5 mg tablet 5 mg PO DAILY #90 tabs 06/23/24 lisinopril 40 mg tablet See Rx Instructions .Route 01/20/25 .COMPLEX #90 tabs amlodipine 5 mg tablet See Rx Instructions .Route 01/27/25 .COMPLEX #90 tabs doxycycline hyclate 100 mg capsule 100 mg PO BID 10 days #20 caps 02/26/25 Allergies Allergy/AdvReac Type Severity Reaction Status Date / Time Opioids - Morphine Analogues Allergy nausea Verified 12/15/24 09:41 Review of Systems General: Reports: 10 or more systems reviewed and unremarkable except in HPI and below Card: Reports: chest pain Resp: Reports: dyspnea Musc: Reports: neck pain and back pain Neuro: Reports: headache(s) PFSH ED PFSH: Medical History Dyslipidemia Benign meningioma R temporal Carpal tunnel syndrome on both sides Breast cancer, right sees oncologist; had lumpectomy, radiation, no chemo Benign essential HTN Surgical History History of exploratory laparotomy nothing removed; done for R sided pain History of laparoscopic cholecystectomy History of lumpectomy of right breast for breast cancer Family History Father No problems noted. Mother Advanced cirrhosis of liver Social History Smoking and tobacco/nicotine status: former use of tobacco/nicotine Quit status (tobacco/nicotine): has quit using Year quit tobacco: 1969 Former quit date comment: only tried it Second hand smoke exposure: No Alcohol intake: never Substance/Drug Use: never Household members: spouse Marital status: Number of children: 3 Highest education level completed: High School Graduate Current occupational status: retired Previous occupational history: secretarial Physical Exam Const: COMMON NORMALS: no acute distress, patient oriented x3 and no limitations GENERAL APPEARANCE: cooperative and comfortable HENMT: COMMON NORMALS: normocephalic, atraumatic, Normal nasal mucous membranes and turbinates present, moist oral mucous membranes and oropharynx normal HEAD & SCALP: normal to inspection, normocephalic and atraumatic FACE & SINUS: normal facial exam NOSE: Normal nasal mucous membranes and turbinates present Eye: COMMON NORMALS: Equal, round and reactive pupils present, EOMs intact bilaterally and conjunctivae normal GENERAL EYE: appearance normal, both eyes and all related structures CONJUNCTIVA: Yes conjunctivae normal PUPIL: Yes Equal, round and reactive pupils present Neck/C-Spine: COMMON NORMALS: supple and no JVD Chest: COMMONS NORMALS: normal inspection of the chest Resp: COMMON NORMALS: normal respiratory effort and clear to auscultation bilaterally AUSCULTATION: clear to auscultation bilaterally Cardio: COMMON NORMALS: no JVD, regular rate, regular rhythm, No gallops present (Cardio), No murmurs present (Cardio) and No rub (Cardio) RATE: regular rate RHYTHM: regular rhythm GI: COMMON NORMALS: Normal to inspection, nondistended, normoactive bowel sounds present, Soft to palpation and non-tender AUSCULTATION: Yes normoactive bowel sounds PALPATION: Yes Soft to palpation : COMMON NORMALS: Yes no CVA tenderness BLADDER/KIDNEY EXAM: Yes no CVA tenderness Back/Pelvis: COMMON NORMALS: no CVA tenderness and thoracic and lumbar spine normal to inspection Extremity: COMMON NORMALS: normal to inspection Neuro: COMMON NORMALS: patient oriented x3 and CN's II-XII intact bilaterally Psych: COMMON NORMALS: mental status grossly normal, Normal thought process present and cooperative THOUGHT PROCESS: Normal thought process present Skin: COMMON NORMALS: no rashes or lesions noted, turgor normal and no jaundice GENERAL SKIN EXAM: no rashes or lesions noted and turgor normal Course Vital Signs: Vital signs: Vital Signs Temperature 98.1 F 02/26/25 10:48 Pulse Rate 78 02/26/25 12:30 Respiratory Rate 16 02/26/25 11:37 Blood Pressure 97/70 02/26/25 12:30 Pulse Oximetry 97 02/26/25 12:30 Oxygen Delivery Me thod Room Air 02/26/25 12:30 MDM - Chest Pain Medical Decision Making EKG revealed sinus rhythm with no ST segment abnormalities. Chest x-ray was read by the radiologist. They do note some atelectasis versus infiltrates in the lower lobes. CBC revealed a white blood cell count of 12.8. CMP revealed a total bili of 1.9. This is chronic. D-dimer was slightly elevated at 0.62. BNP was less than 36. Troponin 7 with a 2-hour level of 7. CT angiogram of the chest was read by the radiologist. No PE. There are some small bilateral lower lobe infiltrates. All results were discussed with the patient. I did place her on doxycycline for pneumonia and her first dose was given in the emergency department. Recommended she push fluids and get some rest. Take Tylenol for aches and pains. Follow-up with primary care physician next week for recheck. She was discharged in stable condition. Lab Data 02/26/25 11:08 02/26/25 11:08 Radiology Impressions Chest X-Ray 02/26/25 11:01 IMPRESSION: 1. Pulmonary atelectasis or acute infiltrates within left lower chest. 2. Mild enlarged cardiac silhouette. Chest CTA 02/26/25 12:13 IMPRESSION: 1. No visualized pulmonary embolus. 2. Diffuse bilateral pulmonary opacities which appear most prominent in the left lower lung. Findings concerning for acute infiltrates, pneumonia or pneumonitis. 3. Ascending thoracic aortic aneurysm, as described above. 4. Colonic diverticulosis. Laboratory Results WBC 12.75 10^3/uL (3.29-11.43) H 02/26/25 11:08 RBC 4.73 10^6/uL (3.85-5.65) 02/26/25 11:08 Hgb 14.30 g/dL (11.27-16.99) 02/26/25 11:08 Hct 42.3 % (36-47) 02/26/25 11:08 MCV 89.4 fl (85-98) 02/26/25 11:08 MCH 30.2 pg (27-33) 02/26/25 11:08 MCHC 33.8 g/dL (30-55) 02/26/25 11:08 RDW 12.9 % (12.1-15.1) 02/26/25 11:08 Plt Count 269 10^3/cmm (157-399) 02/26/25 11:08 MPV 8.4 fL (7.4-10.4) 02/26/25 11:08 Neut % (Auto) 89.7 % 02/26/25 11:08 Lymph % (Auto) 4.5 % 02/26/25 11:08 [place] % (Auto) 5.0 % 02/26/25 11:08 Eos % (Auto) 0.3 % 02/26/25 11:08 Baso % (Auto) 0.2 % 02/26/25 11:08 Neut # (Auto) 11.43 10^3/uL (1.8-7.7) H 02/26/25 11:08 Lymph # (Auto) 0.6 10^3/uL (0.8-4.8) L 02/26/25 11:08 [place] # (Auto) 0.6 10^3/uL (0.2-0.9) 02/26/25 11:08 Eos # (Auto) 0.0 10^3/uL (0.0-0.8) 02/26/25 11:08 Baso # (Auto) 0.0 10^3/uL (0.0-0.1) 02/26/25 11:08 Nucleated RBC % (auto) 0 % 02/26/25 11:08 Nucleated RBCs # 0.0 /100WBC 02/26/25 11:08 D-Dimer 0.62 ug/mLFEU (0-0.59) H 02/26/25 11:08 Sodium 141 mmol/L (136-145) 02/26/25 11:08 Potassium 4.3 mmol/L (3.5-5.1) 02/26/25 11:08 Chloride 106 mmol/L (98-107) 02/26/25 11:08 Carbon Dioxide 23 mmol/L (22-29) 02/26/25 11:08 Anion Gap 16.3 (5-19) 02/26/25 11:08 BUN 19 mg/dL (8-23) 02/26/25 11:08 Creatinine 0.8 mg/dL (0.5-0.9) 02/26/25 11:08 GFR Calculation 70.9 mL/min (90-130) L 02/26/25 11:08 Glucose 128 mg/dL (65-115) H 02/26/25 11:08 Calculated Osmolality 296 mOsm/kg (285-295) H 02/26/25 11:08 Calcium 9.2 mg/dL (8.5-10.5) 02/26/25 11:08 Total Bilirubin 1.9 mg/dL (0.15-1.2) H 02/26/25 11:08 AST 20 U/L (0-32) 02/26/25 11:08 ALT 20 U/L (0-33) 02/26/25 11:08 Alkaline Phosphatase 96 U/L (35-105) 02/26/25 11:08 Troponin T Baseline 7 ng/L (0-10) 02/26/25 11:08 Troponin T 120 Minute 7.03 ng/L (0-10) 02/26/25 13:02 Delta Troponin T 0.03 ABS# (0-10) 02/26/25 13:02 NT-Pro-B Natriuret Pep < 36 pg/mL (0-125) 02/26/25 11:08 Total Protein 6.9 g/dL (6.6-8.7) 02/26/25 11:08 Albumin 4.3 g/dL (3.5-5.2) 02/26/25 11:08 Globulin 2.6 g/dL (1.3-4.6) 02/26/25 11:08 All radiology interpretation(s) finalized by discharge Discharge Plan Discharge Patient Disposition: Home Clinical Impression: Pneumonia Qualifiers: Pneumonia type: due to unspecified organism Laterality: bilateral Lung location: lower lobe of lung Qualified Code(s): J18.9 - Pneumonia, unspecified organism Condition: Stable Prescriptions: New doxycycline hyclate 100 mg capsule 100 mg PO BID 10 Days Qty: 20 0RF No Action Force Factor Total Beets See Rx Instructions .ROUTE DAILY Rx Instructions: 4 tablets daily; acetaminophen 500 mg capsule 500 mg PO Q6H PRN (Reason: tylenol) cholecalciferol (vitamin D3) 25 mcg (1,000 unit) capsule 25 mcg PO DAILY omega-3 fatty acids-fish oil [Fish Oil] 360-1,200 mg capsule 1 cap PO DAILY aspirin 81 mg tablet,delayed release (DR/EC) 81 mg PO DAILY ascorbic acid (vitamin C) 500 mg capsule 500 mg PO DAILY calcium carbonate 500 mg calcium (1,250 mg) tablet 500 mg PO DAILY anastrozole 1 mg tablet 1 mg PO DAILY Qty: 90 3RF rosuvastatin 5 mg tablet 5 mg PO DAILY Qty: 90 1RF lisinopril 40 mg tablet See Rx Instructions .ROUTE .COMPLEX Qty: 90 0RF Dose Instruction: Take 1 tablet by mouth once daily Rx Instructions: Take 1 tablet by mouth once daily amlodipine 5 mg tablet See Rx Instructions .ROUTE .COMPLEX Qty: 90 0RF Dose Instruction: Take 1 tablet by mouth once daily Rx Instructions: Take 1 tablet by mouth once daily Discharge Orders: Discharge ED (Routine); Ordered 02/26/25 Ordered By: Dwight Luna Referrals: Olive Lopez MD [Primary Care Provider, Family Practice] Patient Instructions: Pneumonia (ED) Activity Restrictions/Additional Instructions: Follow-up with your primary care provider next week for recheck. Print Language: Honduran Coding Level of Care Code ED Concrete Saw Operator for Yasmeen Molina
[2025-02-26] MEDS: doxycycline 100 mg Tablet PO (14:02)
== END 2025-02-26 14:09 | disposition home or self-care (01) ==
PROVIDERS: Emergency Provider Emergency Medicine; PCP Family Medicine
DX: J18.9 Pneumonia, unspecified organism (principal); Z79.82 Long term (current) use of aspirin; Z87.891 Personal history of nicotine dependence; E78.5 Hyperlipidemia, unspecified; I10 Essential (primary) hypertension; Z85.3 Personal history of malignant neoplasm of breast
CPT/HCPCS: 36415; 71045; 71275; 80053; 83880; 84484; 85025; 85378; 93005; 96374; 99285; J2405; J9999

== ENCOUNTER 2025-03-17 13:54 | Outpatient (CLI) | payer MEDICARE, SELFPAY ==
--- NOTE | 2025-03-17 14:30 | XR_ITS ---
WS: [id number] SCREENING DEXA SCAN [place] CLINICAL INFORMATION: postmenopausal; screening COMPARISON: None. FINDINGS: The L1-L4 bone mineral density measures 1.184 g/cm2. This corresponds to a T score score of 0.0 and Z score of 1.5. Left femoral neck bone mineral density measures 0.973 g/cm2. This corresponds to a T score of -0.3 and Z score of 1.1. Right femoral neck bone mineral density measures 0.882 g/cm2. This corresponds to a T score -1.0of and Z score of 0.3. Mean femoral neck bone mineral density measures 0.927 g/cm2. This corresponds to a T score of -0.6 and Z score of 0.7. XR/XR DEXA axial skeleton* [id number] IMPRESSION: Normal bone mineralization lumbar spine. Osteopenia of the RIGHT femur. Normal bone mineralization LEFT femur. Patient's FRAX calculated 10 year probability for major osteoporotic fracture i s 8.6% and osteoporotic hip fracture is 0.9%.
== END 2025-03-17 13:55 | disposition home or self-care (01) ==
LOC: RAD 13:54
PROVIDERS: PCP Family Medicine; Visit Provider Family Medicine
DX: Z13.820 Encounter for screening for osteoporosis (principal); Z78.0 Asymptomatic menopausal state
CPT/HCPCS: 77080

== ENCOUNTER 2025-04-03 14:03 | Emergency (ER) | payer MEDICARE, SELFPAY ==
[2025-04-03 14:07] VITALS: BP 146/83; PULSE 66; RESP 18; TEMP 36.6; O2SAT 99; BMI 31.3
--- NOTE | 2025-04-03 14:14 | ECG_ITS ---
[facility] Test Date: 2025-04-03 Pat Name: Hina Cardenas Department: Room: Gender: Female Harness Maker: : 1955 Requested By: Alek Blancas Order Number: [id number] Reading MD: Measurements Intervals [place] Rate: 56 P: 28 [place]: 154 QRS: -16 QRSD: 86 T: 38 QT: 417 QTc: 405 Interpretive Statements SINUS BRADYCARDIA LOW QRS VOLTAGE IN PRECORDIAL LEADS [QRS DEFLECTION < 1.0 mV IN CHEST LEADS] MINIMAL VOLTAGE CRITERIA FOR LVH, CONSIDER NORMAL VARIANT [MEETS CRITERIA IN ONE OF: R(aVL), S(V1), R(V5), R(V5/V6)+S(V1)] Compared to ECG 02/26/2025 13:13:50 Sinus rhythm no longer present [email or web address] [id number]
--- NOTE | 2025-04-03 14:17 | XRR_ITS ---
PROCEDURE INFORMATION: Exam: XR Chest Exam date and time: 04/03/2025 2:39 PM Age: 69 years old Clinical indication: Pain; Chest pressure; Additional info: Cp TECHNIQUE: Imaging protocol: Radiologic exam of the chest. Views: 1 view. COMPARISON: 1. CT angio chest PE protcl [id number] 02/26/2025 12:40 PM 2. CR (CHEST, ) 02/26/2025 11:27 AM FINDINGS: Lungs: Unremarkable. No consolidation. Pleural spaces: Unremarkable. No pleural effusion. No pneumothorax. Heart/Mediastinum: Unremarkable. No cardiomegaly. Bones/joints: Degenerative change along the spine and acromioclavicular joints. Intraperitoneal space: Right upper abdomen surgical clips. XR/XR chest 1V portable [id number] IMPRESSION: No acute findings.
--- NOTE | 2025-04-03 14:19 | W.ED.CHESTPA ---
HPI - Chest Pain General: Chief Complaint: Chest Pain Stated Complaint: dizzy Time Seen by Provider: 04/03/25 14:19 History of Present Illness: 69-year-old female presents emergency room complaining of chest discomfort with dizziness. She any slurring of speech and difficulty swallowing gait or balance. The dizziness is worse when she turns her head to the left. She notes when she holds still she has no symptoms. She also a little mild chest discomfort she previously had a 4 cm ascending aortic aneurysm on the CTA of her chest earlier this year. No pain radiating to her back at this time. No shortness of breath or diaphoresis. Associated symptoms: Deny abdominal pain, dyspnea or fever(s) Related Data Home Medications ?Medication ?Instructions ?Recorded ?Confirmed acetaminophen 500 mg capsule 500 mg PO Q6H PRN tylenol 09/17/22 03/22/25 ascorbic acid (vitamin C) 500 mg 500 mg PO DAILY 09/17/22 03/22/25 capsule aspirin 81 mg tablet,delayed 81 mg PO DAILY 09/17/22 03/22/25 release cholecalciferol (vitamin D3) 25 25 mcg PO DAILY 09/17/22 03/22/25 mcg (1,000 unit) capsule omega-3 fatty acids-fish oil 360 1 cap PO DAILY 09/17/22 03/22/25 mg-1,200 mg capsule (Fish Oil) Force Factor Total Beets See Rx Instructions .Route DAILY 11/28/22 03/22/25 calcium carbonate 500 mg PO DAILY 01/09/23 03/22/25 Previous Rx's ?Medication ?Instructions ?Recorded anastrozole 1 mg tablet 1 mg PO DAILY #90 tabs 06/15/24 rosuvastatin 5 mg tablet 5 mg PO DAILY #90 tabs 06/23/24 lisinopril 40 mg tablet See Rx Instructions .Route 01/20/25 .COMPLEX #90 tabs amlodipine 5 mg tablet See Rx Instructions .Route 01/27/25 .COMPLEX #90 tabs meclizine 25 mg tablet 25 mg PO QID PRN dizziness #20 tabs 04/03/25 Allergies Allergy/AdvReac Type Severity Reaction Status Date / Time Opioids - Morphine Analogues Allergy nausea Verified 03/22/25 07:59 Review of Systems Const: Denies: fever(s) or chills Card: Denies: chest pain Resp: Denies: dyspnea GI: Denies: abdominal pain : Denies: dysuria, urinary frequency or urinary urgency Musc: Denies: neck pain or back pain Skin/Breast: Denies: rash PFSH ED PFSH: Medical History Thoracic ascending aortic aneurysm 4cm; noted on 02.26.25 CTA, f/u 1 yr Dyslipidemia Benign meningioma R temporal; no change MRI from 2020 to 2024; will plan to repeat Q4yrs or sooner if symptoms warrant Carpal tunnel syndrome on both sides Breast cancer, right sees oncologist; had lumpectomy, radiation, no chemo Benign essential HTN Surgical History History of carpal tunnel surgery of right wrist History of exploratory laparotomy nothing removed; done for R sided pain History of laparoscopic cholecystectomy History of lumpectomy of right breast for breast cancer Family History Father No problems noted. Mother Advanced cirrhosis of liver Sister Breast cancer 2 sisters had breast cancer Social History Smoking and tobacco/nicotine status: former use of tobacco/nicotine Quit status (tobacco/nicotine): has quit using Year quit tobacco: 1969 Former quit date comment: only tried it Second hand smoke exposure: No Alcohol intake: never Substance/Drug Use: never Household members: spouse Marital status: Number of children: 3 Highest education level completed: High School Graduate Current occupational status: retired Previous occupational history: secretarial Physical Exam Const: COMMON NORMALS: no acute distress GENERAL APPEARANCE: cooperative and comfortable ORIENTATION/CONSCIOUSNESS: Yes awake, Yes oriented to person, Yes oriented to place and Yes oriented to time HENMT: COMMON NORMALS: normocephalic, atraumatic and hearing grossly normal bilaterally HEAD & SCALP: normocephalic and atraumatic Eye: OTHER: Mild nystagmus to the right Resp: COMMON NORMALS: normal respiratory effort, No retractions, No use of accessory muscles and clear to auscultation bilaterally AUSCULTATION: clear to auscultation bilaterally Cardio: COMMON NORMALS: regular rate, regular rhythm and No murmurs present (Cardio) RATE: regular rate RHYTHM: regular rhythm GI: COMMON NORMALS: Soft to palpation and No hepatosplenomegaly present AUSCULTATION: Yes normoactive bowel sounds PALPATION: Yes Soft to palpation, No Tenderness to palpation present (GI), No Guarding due to palpation present (GI) and Yes No hepatosplenomegaly present Extremity: COMMON NORMALS: normal to inspection, capillary refill normal, no clubbing, cyanosis or edema, no calf tenderness and no pedal edema Neuro: SENSORIUM/ORIENTATION: Yes oriented to person, Yes oriented to place and Yes oriented to time Skin: COMMON NORMALS: no rashes or lesions noted GENERAL SKIN EXAM: no rashes or lesions noted Course Vital Signs: Vital signs: Vital Signs Temperature 97.9 F 04/03/25 14:07 Pulse Rate 75 04/03/25 17:39 Respiratory Rate 18 04/03/25 14:07 Blood Pressure 133/77 04/03/25 17:23 Pulse Oximetry 97 04/03/25 17:39 Oxygen Delivery Me thod Room Air 04/03/25 14:07 MDM - Chest Pain Medical Decision Making Pain in the breast is reproducible with palpation he is musculoskeletal. She has reproducible dizziness with turning her head to the right improved with treatment in the emergency room discharge the patient home patient given meclizine to use as needed if the chest wall pain continues she can follow-up with primary care doctor. EKGs and troponins unremarkable no sign of acute coronary syndrome Medical Records FINDINGS: Pulmonary arteries: No visualized pulmonary emboli. Great vessels off aortic arch: Unremarkable. Aorta: Mild atherosclerotic calcification demonstrated within the aorta. The ascending thoracic aorta is aneurysmal. Ascending thoracic aorta measurement: 4 cm on axial image 188 of series 7. Normal tapering of the aortic arch and descending thoracic aorta. Lab Data 04/03/25 14:41 04/03/25 14:41 Radiology Impressions Chest X-Ray 04/03/25 14:17 IMPRESSION: No acute findings. Laboratory Results WBC 5.39 10^3/uL (3.29-11.43) 04/03/25 14:41 RBC 4.62 10^6/uL (3.85-5.65) 04/03/25 14:41 Hgb 14.00 g/dL (11.27-16.99) 04/03/25 14:41 Hct 41.9 % (36-47) 04/03/25 14:41 MCV 90.7 fl (85-98) 04/03/25 14:41 MCH 30.3 pg (27-33) 04/03/25 14:41 MCHC 33.4 g/dL (30-55) 04/03/25 14:41 RDW 12.9 % (12.1-15.1) 04/03/25 14:41 Plt Count 235 10^3/cmm (157-399) 04/03/25 14:41 MPV 8.5 fL (7.4-10.4) 04/03/25 14:41 Neut % (Auto) 73.1 % 04/03/25 14:41 Lymph % (Auto) 17.6 % 04/03/25 14:41 [place] % (Auto) 6.5 % 04/03/25 14:41 Eos % (Auto) 1.7 % 04/03/25 14:41 Baso % (Auto) 0.7 % 04/03/25 14:41 Neut # (Auto) 3.94 10^3/uL (1.8-7.7) 04/03/25 14:41 Lymph # (Auto) 1.0 10^3/uL (0.8-4.8) 04/03/25 14:41 [place] # (Auto) 0.4 10^3/uL (0.2-0.9) 04/03/25 14:41 Eos # (Auto) 0.1 10^3/uL (0.0-0.8) 04/03/25 14:41 Baso # (Auto) 0.0 10^3/uL (0.0-0.1) 04/03/25 14:41 Nucleated RBC % (auto) 0 % 04/03/25 14:41 Nucleated RBCs # 0.0 /100WBC 04/03/25 14:41 PT 12.80 SECONDS (12.1-14.9) 04/03/25 14:41 INR 0.90 (0.8-1.2) 04/03/25 14:41 Sodium 138 mmol/L (136-145) 04/03/25 14:41 Potassium 4.2 mmol/L (3.5-5.1) 04/03/25 14:41 Chloride 103 mmol/L (98-107) 04/03/25 14:41 Carbon Dioxide 20 mmol/L (22-29) L 04/03/25 14:41 Anion Gap 19.2 (5-19) H 04/03/25 14:41 BUN 12 mg/dL (8-23) 04/03/25 14:41 Creatinine 0.7 mg/dL (0.5-0.9) 04/03/25 14:41 GFR Calculation 82.7 mL/min (90-130) L 04/03/25 14:41 Glucose 105 mg/dL (65-115) 04/03/25 14:41 Calculated Osmolality 286 mOsm/kg (285-295) 04/03/25 14:41 Calcium 9.1 mg/dL (8.5-10.5) 04/03/25 14:41 Total Bilirubin 1.3 mg/dL (0.15-1.2) H 04/03/25 14:41 AST 18 U/L (0-32) 04/03/25 14:41 ALT 16 U/L (0-33) 04/03/25 14:41 Alkaline Phosphatase 93 U/L (35-105) 04/03/25 14:41 Troponin T Baseline < 6 ng/L (0-10) 04/03/25 14:41 Troponin T 120 Minute 7.04 ng/L (0-10) 04/03/25 16:26 Delta Troponin T 1.92098 ABS# (0-10) 04/03/25 16:26 Total Protein 6.6 g/dL (6.6-8.7) 04/03/25 14:41 Albumin 4.1 g/dL (3.5-5.2) 04/03/25 14:41 Globulin 2.5 g/dL (1.3-4.6) 04/03/25 14:41 Lipase 23 U/L (13-60) 04/03/25 14:41 All radiology interpretation(s) finalized by discharge Discharge Plan Discharge Patient Disposition: Home Clinical Impression: Benign paroxysmal positional vertigo, Anterior chest wall pain Condition: Stable Prescriptions: New meclizine 25 mg tablet 25 mg PO QID PRN (Reason: dizziness) Qty: 20 0RF No Action Force Factor Total Beets See Rx Instructions .ROUTE DAILY Rx Instructions: 4 tablets daily; acetaminophen 500 mg capsule 500 mg PO Q6H PRN (Reason: tylenol) cholecalciferol (vitamin D3) 25 mcg (1,000 unit) capsule 25 mcg PO DAILY omega-3 fatty acids-fish oil [Fish Oil] 360-1,200 mg capsule 1 cap PO DAILY aspirin 81 mg tablet,delayed release (DR/EC) 81 mg PO DAILY ascorbic acid (vitamin C) 500 mg capsule 500 mg PO DAILY calcium carbonate 500 mg calcium (1,250 mg) tablet 500 mg PO DAILY anastrozole 1 mg tablet 1 mg PO DAILY Qty: 90 3RF rosuvastatin 5 mg tablet 5 mg PO DAILY Qty: 90 1RF lisinopril 40 mg tablet See Rx Instructions .ROUTE .COMPLEX Qty: 90 0RF Dose Instruction: Take 1 tablet by mouth once daily Rx Instructions: Take 1 tablet by mouth once daily amlodipine 5 mg tablet See Rx Instructions .ROUTE .COMPLEX Qty: 90 0RF Dose Instruction: Take 1 tablet by mouth once daily Rx Instructions: Take 1 tablet by mouth once daily Discharge Orders: Discharge ED (Routine); Ordered 04/03/25 Ordered By: Bran Ibarra Referrals: Olive Lopez MD [Primary Care Provider, Family Practice] Discharge Diet: Usual diet Discharge Activity: Increase activity as tolerated Patient Instructions: Benign Paroxysmal Positional Vertigo (ED), Opioid Safety, Pain Management, Patient Portal & [place] Instructions Activity Restrictions/Additional Instructions: Thank you for choosing [facility] for your healthcare needs today. It is very important that you follow up as instructed or that you return to the Emergency Department should you have concerns or if your condition changes or worsens in any way. You were seen in the emergency room for dizziness. As well as chest discomfort your cardiac enzymes and EKG were normal there is no sign of any heart attack. You did have signs of positional vertigo. This is the cause of the dizziness symptoms. You are given medication to use for this at home. If it persist follow-up with your primary care doctor Print Language: Japanese Coding Level of Care Code ED Ring Packer for Yasmeen Molina
[2025-04-03 14:59] LABS: Hematocrit 41.9 % (36-47); Hemoglobin 14.00 g/dL (11.27-16.99); Mean Corpuscular HGB Conc 33.4 g/dL (30-55); Mean Corpuscular Hemoglobin 30.3 pg (27-33); Mean Corpuscular Volume 90.7 fl (85-98); Nucleated Red Blood Cells % 0 %; Platelet Count 235 10^3/cmm (157-399); Red Blood Count 4.62 10^6/uL (3.85-5.65); White Blood Count 5.39 10^3/uL (3.29-11.43)
[2025-04-03] MEDS: LORazepam 1 MG/0.5 ML injection IVP (15:10)
[2025-04-03 15:30] LABS: INR 0.90 (0.8-1.2); Prothrombin Time 12.80 SECONDS (12.1-14.9)
[2025-04-03 15:34] LABS: Troponin(5th) Baseline < 6 ng/L (0-10)
[2025-04-03 15:37] LABS: Alanine Aminotransferase 16 U/L (0-33); Albumin Level 4.1 g/dL (3.5-5.2); Alkaline Phosphatase 93 U/L (35-105); Aspartate Amino Transferase 18 U/L (0-32); Blood Urea Nitrogen 12 mg/dL (8-23); Calcium 9.1 mg/dL (8.5-10.5); Carbon Dioxide 20 mmol/L (22-29); Chloride 103 mmol/L (98-107); Creatinine Clr Calc Pharmacy 72.6262; Globulin 2.5 g/dL (1.3-4.6); Glucose 105 mg/dL (65-115); Lipase 23 U/L (13-60); Osmolality Calculated 286 mOsm/kg (285-295); Sodium 138 mmol/L (136-145); Total Protein 6.6 g/dL (6.6-8.7)
[2025-04-03 15:46] LABS: Anion Gap 19.2 (5-19); Potassium 4.2 mmol/L (3.5-5.1)
[2025-04-03 16:02] VITALS: BP 133/77; PULSE 60; O2SAT 96
--- NOTE | 2025-04-03 16:17 | ECG_ITS ---
[facility] [employer] Test Date: 2025-04-03 Pat Name: Hina Cardenas Department: Room: Gender: Female Home Care Manager: : 1955 Requested By: Alek Blancas Order Number: [id number] Reading MD: Measurements Intervals [place] Rate: 69 P: 10 [place]: 144 QRS: -28 QRSD: 90 T: 15 QT: 388 QTc: 417 Interpretive Statements SINUS RHYTHM BORDERLINE LEFT AXIS DEVIATION [QRS AXIS < -20] MODERATE VOLTAGE CRITERIA FOR LVH, CONSIDER NORMAL VARIANT [MEETS CRITERIA IN ONE OF: R(aVL), S(V1), R(V5), R(V5/V6)+S(V1)] Compared to ECG 04/03/2025 14:14:02 Sinus bradycardia no longer present [id number] [id number]
[2025-04-03 16:48] LABS: Troponin 5 2HR 7.04 ng/L (0-10); Troponin 5 2HR Delta 1.04001 ABS# (0-10)
[2025-04-03 17:23] VITALS: BP 133/77; PULSE 60; O2SAT 96
[2025-04-03 17:39] VITALS: PULSE 75; O2SAT 97
== END 2025-04-03 17:58 | disposition home or self-care (01) ==
PROVIDERS: Emergency Medicine; Emergency Provider Family Medicine; PCP Family Medicine
DX: H81.11 Benign paroxysmal vertigo, right ear (principal); R07.89 Other chest pain; Z79.82 Long term (current) use of aspirin; Z87.891 Personal history of nicotine dependence; E78.5 Hyperlipidemia, unspecified; I10 Essential (primary) hypertension; Z85.3 Personal history of malignant neoplasm of breast
CPT/HCPCS: 71045; 80053; 83690; 84484; 85025; 85610; 93005; 93010; 96374; 99285; J2060

== ENCOUNTER 2025-06-02 11:06 | Outpatient (CLI) | payer MEDICARE, SELFPAY ==
--- NOTE | 2025-06-02 12:30 | MM_ITS ---
WS: [id number] BILATERAL 3D TOMOSYNTHESIS DIGITAL DIAGNOSTIC MAMMOGRAPHY WITH CAD CLINICAL INFORMATION: annual mammo hx of breast cancer HISTORY: History of RIGHT lumpectomy COMPARISON: 2023 TECHNIQUE: Bilateral CC, MLO, and ML views. FINDINGS: Scattered fibroglandular densities bilaterally. Prior postoperative changes lumpectomy upper-outer quadrant RIGHT breast with parenchymal scarring and architectural distortion similar to previous. Treatment-related changes with associated skin thickening RIGHT breast. Vascular calcification. No suspicious focal mass, asymmetry, calcifications, or architectural distortion. No evidence of malignancy. MM/MM diag tomosynthesis [id number] IMPRESSION: DENSITY: There are scattered areas of fibroglandular density. BI-RADS: 2 - Benign. FOLLOW UP: 1 Year Follow-up Recommend return to annual diagnostic mammography.
== END 2025-06-02 11:07 | disposition home or self-care (01) ==
LOC: RAD 11:09
PROVIDERS: PCP Family Medicine; Visit Provider Family Medicine
DX: Z12.39 Encounter for other screening for malignant neoplasm of breast (principal); Z85.3 Personal history of malignant neoplasm of breast; Z98.890 Other specified postprocedural states; R92.323 Mammographic fibroglandular density, bilateral breasts
CPT/HCPCS: 77062; G0279

== ENCOUNTER → 2025-06-06 14:14 | Outpatient (BNVA) | payer MEDICARE, SELFPAY | PROVIDERS: PCP Family Medicine; Visit Provider Nurse Practitioner Family | DX: Z11.59 Encounter for screening for other viral diseases (principal); C50.911 Malignant neoplasm of unspecified site of right female breast | CPT/HCPCS: 80053; 83615; 85025; 86803 ==

== ENCOUNTER 2025-06-15 09:34 | Oncology outpatient (recurring) (ONCR) | payer MEDICARE, SELFPAY | END 2025-06-28 23:59 | disposition home or self-care (01) | LOC: ONCMED 09:34 | PROVIDERS: PCP Family Medicine; Visit Provider Internal Medicine | DX: C50.911 Malignant neoplasm of unspecified site of right female breast (principal); Z17.0 Estrogen receptor positive status [ER+]; R03.0 Elevated blood-pressure reading, without diagnosis of hypertension; M25.50 Pain in unspecified joint; M85.88 Other specified disorders of bone density and structure, other site; B00.1 Herpesviral vesicular dermatitis; Z92.3 Personal history of irradiation; Z87.891 Personal history of nicotine dependence; Z79.899 Other long term (current) drug therapy | CPT/HCPCS: 99214 ==

== ENCOUNTER 2025-06-22 14:03 | Outpatient (CLI) | payer MEDICARE, SELFPAY | END 2025-06-22 14:04 | disposition home or self-care (01) | PROVIDERS: PCP Family Medicine; Visit Provider Nurse Practitioner Family | DX: Z79.899 Other long term (current) drug therapy (principal) | CPT/HCPCS: 36415; 82306 ==